=== PATIENT | female | born 1995 | race Caucasian/White ===

== ENCOUNTER 2017-10-26 19:29 | Emergency (ER) | payer OTHER | END 2017-10-26 20:17 | disposition home or self-care (01) | LOC: FTE 19:29 | DX: L60.0 Ingrowing nail (principal) | CPT/HCPCS: 99283; Z7502 ==

== ENCOUNTER 2017-11-28 13:02 | Emergency (ER) | payer OTHER | END 2017-11-28 15:50 | disposition home or self-care (01) | LOC: FTE 13:02 | DX: S93.401A Sprain of unspecified ligament of right ankle, initial encounter (principal); X58.XXXA Exposure to other specified factors, initial encounter; Y92.9 Unspecified place or not applicable | CPT/HCPCS: 73610; 73610-RT; 99283-25 ==

== ENCOUNTER 2018-03-04 16:43 | Emergency (ER) | payer OTHER ==
[2018-03-04] MEDS: DIPHTH/TET/ACEL PERTUSS (ADULT) 0.5 ML VIAL IM* (18:17)
== END 2018-03-04 19:07 | disposition home or self-care (01) ==
LOC: FTE 16:43
DX: S61.452A Open bite of left hand, initial encounter (principal); W54.0XXA Bitten by dog, initial encounter; Y92.9 Unspecified place or not applicable; Z23 Encounter for immunization
CPT/HCPCS: 90471; 90715; 99283-25